=== PATIENT | male | born 1990 | race Hispanic/Latino ===

== ENCOUNTER 2024-10-25 15:03 | Emergency (ER) | payer BC, SELFPAY ==
[2024-10-25 15:54] VITALS: BP 156/101; PULSE 82; RESP 18; TEMP 37.5; O2SAT 99
--- NOTE | 2024-10-25 16:38 | ECG_ITS ---
Test Date: 2024-10-25 16:49:31 Measurements Intervals [place] Rate: 76 P: 15 KS: 122 QRS: 57 QRSD: 101 T: 45 QT: 389 QTc: 438 Interpretive Statements SINUS RHYTHM No previous ECG available for comparison Electronically Signed On 10-25-2024 17:55:32 NURSING COORDINATOR by Melissa Odonnell M.D.
--- NOTE | 2024-10-25 16:39 | ED.GENADULT ---
HPI - General Adult General Chief complaint: Unspecified Stated complaint: Panic Attack Time Seen by Provider: 10/25/24 16:29 Source: patient and RN notes reviewed Mode of arrival: ambulatory Limitations: no limitations History of Present Illness HPI narrative: Patient presents today complaining of feeling numbness and coldness in his bilateral hands and feet that started around 3 to have hours prior to exam while working at [employer]. Also at that time, he is complaining of burning and blurred vision in the eyes, palpitations, and hearing loss of both his ears. Symptoms have slightly improved since onset. Denies history of anxiety or panic attacks. He does have history of, ?kidney problems. ? No ifmi-qup-wozyiqy treatment prior to arrival. Related Data Home Medications ?Medication ?Instructions ?Recorded ?Confirmed ?Last Taken ?Type natural pills for kidneys 10/25/24 Unknown History Allergies Allergy/AdvReac Type Severity Reaction Status Date / Time No Known Allergies Allergy Verified 10/25/24 15:48 [facility] Comments At time of signature, I have reviewed and agree with nursing past medical, surgical, social and family history unless otherwise noted. Please see nursing chart for further information. There is no relevant family history pertinent to the presenting complaint Exam Narrative: GENERAL: Well-appearing, well-nourished, and in no acute distress. HEAD: Normocephalic, atraumatic. EYES: EOMI. PERRL. No redness or drainage. Conjunctivae normal. ENT: Mucous membranes pink and moist. Nares clear. No rhinorrhea. TMs normal bilaterally. Throat normal. Uvula midline. NECK: Normal AROM. Supple. No lymphadenopathy. CHEST: No respiratory distress. Clear to auscultation. HEART: Regular rate and rhythm. No murmur appreciated. Normal peripheral pulses. ABDOMEN: Soft, nontender, nondistended, normal active bowel sounds. EXTREMITIES: Normal range of motion. No edema. 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 5/5 strength in BLE, sensation intact SKIN: Warm, dry, no rash. Capillary refill normal. Normal skin turgor. NEURO: No focal deficits. Alert and oriented x3. Gait steady. PSYCH: Normal affect. No signs of depression or anxiety. Course Course Emergency Course: 1718-patient states his symptoms have continued to improve. EKG is normal. Visual acuity: Right 20/20, left 20/20. Patient declines ER transfer at this time. He would like to find a PCP to follow up with. Level of Care: Express Care Visit Vital Signs Vital signs: Vital Signs Temperature 99.5 F 10/25/24 15:54 Pulse Rate 82 10/25/24 15:54 Respiratory Rate 18 10/25/24 15:54 Blood Pressure 156/101 H 10/25/24 15:54 Pulse Oximetry 99 10/25/24 15:54 Oxygen Delivery Room Air 10/25/24 15:54 Temperature 99.5 F 10/25/24 15:54 Pulse Rate 82 10/25/24 15:54 Respiratory Rate 18 10/25/24 15:54 Blood Pressure 156/101 H 10/25/24 15:54 Pulse Oximetry 99 10/25/24 15:54 Oxygen Delivery Room Air 10/25/24 15:54 Reviewed Medical Decision Making MDM Narrative Medical decision making narrative: Patient declines ER transfer. He will be discharged home. Phone number for physician liaison provided so he can find a new PCP. ED precautions given. Differential Diagnosis Differential Diagnosis: Panic attack, anxiety, palpitations, Vital Signs Vital Signs: Vital Signs Temperature 99.5 F 10/25/24 15:54 Pulse Rate 82 10/25/24 15:54 Respiratory Rate 18 10/25/24 15:54 Blood Pressure 156/101 H 10/25/24 15:54 Pulse Oximetry 99 10/25/24 15:54 Oxygen Delivery Room Air 10/25/24 15:54 Temperature 99.5 F 10/25/24 15:54 Pulse Rate 82 10/25/24 15:54 Respiratory Rate 18 10/25/24 15:54 Blood Pressure 156/101 H 10/25/24 15:54 Pulse Oximetry 99 10/25/24 15:54 Oxygen Delivery Room Air 10/25/24 15:54 ECG Data EKG #1: Attestation: I personally reviewed and interpreted this ECG as follows: ECG completion date: 10/25/24 ECG completion time: 16:49 Prior ECG tracings: not available for review Interpretation: Normal sinus rhythm. Heart rate 76. UT interval 122. Critical Care Time Critical Care Time Critical Care Time: No Discharge Plan Discharge Clinical Impression: Palpitations Patient Disposition: Home, Self-Care Condition: Stable Additional Instructions: Please call the physician liaison number at [phone]. They will help you find a new PCP that is taking new patients. If your symptoms worsen, especially to include chest pain, shortness of breath, dizziness or lightheadedness, please go to the ER immediately for further evaluation and treatment. Your blood pressure was elevated above 120/80 today at Urgent Care. This puts you above the threshold for follow up. Please schedule a followup visit with your personal physician as soon as possible, for further evaluation and treatment. Even blood pressure exceeding 120/80 may indicate pre-hypertension. Patient Language: [place]i Prescriptions: No Action natural pills for kidneys Follow-up/Referrals: PHYSICIAN,HOUSEHOLD APPLIANCES SALESPERSON [Primary Care Provider] - Time of Disposition: 17:21
== END 2024-10-25 17:25 | disposition home or self-care (01) ==
PROVIDERS: Emergency Provider Nurse Practitioner
DX: R00.2 Palpitations (principal)
CPT/HCPCS: 93005; 99213; G0463

== ENCOUNTER → 2024-11-15 14:28 | Outpatient (CLI) | payer BC, SELFPAY ==
--- NOTE | ~2024-11-15 | XR_ITS ---
EXAMINATION: XR thoracic spine 3V, XR lumbar spine 2-3V DATE: 11/15/2024 14:50 INDICATION: Mid to low back pain TECHNIQUE: 1. One AP, lateral and lateral swimmer's views of the thoracic spine were obtained. 2. AP, lateral and coned-down lateral lumbosacral views of the lumbar spine were obtained. COMPARISON: None. FINDINGS: 5 degrees thoracic dextrocurvature. Otherwise normal alignment of the thoracic and lumbar spine. Thor acic and lumbar vertebral body and disc heights are normal. Mild osteoarthritis at the bilateral sacr oiliac joints. Visualized portion of the lungs are clear with no evident pleural effusion or pneumoth orax. Cardiomediastinal silhouette is normal. IMPRESSION: 1. 5 degrees thoracic dextrocurvature and mild bilateral sacroiliac osteoarthritis. Otherwise unremar kable thoracic and lumbar spine radiographs. Reviewed, dictated and finalized at location A. DER SNUFF IMPRESSION: 1. 5 degrees thoracic dextrocurvature and mild bilateral sacroiliac osteoarthri tis. Otherwise unremarkable thoracic and lumbar spine radiographs.
== END ==
LOC: EXPCRAD 14:29
PROVIDERS: PCP Emergency Medicine; Visit Provider Emergency Medicine
DX: M41.84 Other forms of scoliosis, thoracic region (principal); M47.818 Spondylosis without myelopathy or radiculopathy, sacral and sacrococcygeal region
CPT/HCPCS: 72072; 72100